=== PATIENT | female | born 2000 | race Caucasian/White ===

== ENCOUNTER 2020-11-28 05:53 | Observation (INO) | payer OTHER ==
[2020-11-28 06:58] VITALS: O2SAT 98
[2020-11-28 07:34] LABS: Amphetamine,Urine NEGATIVE (NEGATIVE); Barbiturate,Urine NEGATIVE (NEGATIVE); Benzodiazepine,Urine NEGATIVE (NEGATIVE); Cocaine,Urine NEGATIVE (NEGATIVE); Methadone,Urine NEGATIVE (NEGATIVE); Opiate,Urine NEGATIVE (NEGATIVE); THC,Urine POSITIVE (NEGATIVE)
[2020-11-28 07:37] LABS: PCP,Urine NEGATIVE (NEGATIVE)
[2020-11-28 10:32] VITALS: BP 111/67; PULSE 73
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
== END 2020-11-28 11:00 | disposition home or self-care (01) ==
LOC: OB 05:53
PROVIDERS: ADMIT Family Medicine; ATTEND Family Medicine
DX: Z34.03 Encounter for supervision of normal first pregnancy, third trimester (principal); Z3A.36 36 weeks gestation of pregnancy; Z04.1 Encounter for examination and observation following transport accident
CPT/HCPCS: 76816; 80307; G0378

== ENCOUNTER 2020-12-14 04:29 | Observation (INO) | payer OTHER ==
[2020-12-14] MEDS ORDERED: BRETHINE 1 MG/ML SQ PRN (18:00)
[2020-12-14] MEDS ORDERED: Lactated Ringers 1,000 ML IV SCH (19:00)
[2020-12-14] MEDS ORDERED: Zofran 4 MG/2 ML VIAL IV PRN (19:00)
[2020-12-14] MEDS ORDERED: OMNIPEN 2 GM*** 2 G in Sodium Chloride 100ML MINI-BAG PLUS 100 ML IV ONE (19:00)
[2020-12-14] MEDS ORDERED: TYLENOL EXTRA STRENGTH 500 MG PO PRN (19:00)
[2020-12-14 19:05] LABS: Absolute Neutrophil Ct (ANC) 9.97 (1.4-6.9); BASOPHIL % 0.1 % (0.0-0.4); Basophil (Absolute #) 0.01 (0-0.4); Eosinophil % 0.3 % (0.00-5.0); Eosinophil (Absolute #) 0.04 (0-0.5); Hematocrit 38.9 % (35-47); Hemoglobin 12.7 gm/dl (12.0-16.0); Lymphocyte (Absolute #) 1.73 (1.0-4.6); Lymphocytes % 13.8 % (24.0-44.0); Mean Cell Volume 86.8 fl (78-100); Mean Corpuscular Hemoglobin 28.3 pg (26-32); Mean Corpuscular Hgb Concent. 32.6 g/dl (32-36); Monocyte (Absolute #) 0.83 (0.0-1.3); Monocytes % 6.6 % (0.0-12.0); Neutrophil % 79.2 % (36.0-66.0); Platelet Count 194 K/mm3 (150-450); Red Blood Count 4.48 M/mm3 (4.1-5.4); Red Cell Distribution Width 17.8 % (11.5-14.0); White Blood Count 12.6 K/mm3 (4.0-10.5)
[2020-12-14 19:19] LABS: Amphetamine,Urine NEGATIVE (NEGATIVE); Barbiturate,Urine NEGATIVE (NEGATIVE); Benzodiazepine,Urine NEGATIVE (NEGATIVE); Cocaine,Urine NEGATIVE (NEGATIVE); Methadone,Urine NEGATIVE (NEGATIVE); Opiate,Urine NEGATIVE (NEGATIVE); PCP,Urine NEGATIVE (NEGATIVE); THC,Urine POSITIVE (NEGATIVE)
[2020-12-14] MEDS: CYTOTEC PO SCH ×2 (20:08→22:16)
[2020-12-14] MEDS ORDERED: OMNIPEN 1 GM*** 1 GM in Sodium Chloride 100ML MINI-BAG PLUS 100 ML IV SCH (23:00)
[2020-12-15] MEDS ORDERED: OMNIPEN 2 GM*** 2 G in Sodium Chloride 100ML MINI-BAG PLUS 100 ML IV ONE ×2
[2020-12-15] MEDS: CYTOTEC PO SCH ×4 (00:25→06:49)
[2020-12-15] MEDS: OMNIPEN 1 GM*** 1 GM in Sodium Chloride 100ML MINI-BAG PLUS 100 ML IV SCH ×2 (04:18→07:58)
[2020-12-15] MEDS ORDERED: XYLOCAINE 1% HCL 20 ML MDV IJ PRN (08:00)
[2020-12-15] MEDS ORDERED: PITOCIN 30 UNITS/ LR 500 ML 30 UNITS/500 ML IV.SOLN. IV SCH ×2 (08:00)
[2020-12-15 08:52] VITALS: O2SAT 98
[2020-12-15 11:40] VITALS: BP 128/59
[2020-12-15 13:26] VITALS: PULSE 75
== END 2020-12-15 13:00 | disposition home or self-care (01) ==
LOC: OB 18:09
PROVIDERS: ADMIT Family Medicine; ATTEND Family Medicine
DX: O98.813 Other maternal infectious and parasitic diseases complicating pregnancy, third trimester (principal); B95.1 Streptococcus, group B, as the cause of diseases classified elsewhere; Z3A.39 39 weeks gestation of pregnancy
CPT/HCPCS: 36415; 80307; 85025; G0378; J0290; J2590

== ENCOUNTER 2020-12-18 18:15 | Inpatient (IN) | payer OTHER ==
[~2020-12-18 18:15] MED LIST: NON-FORMULARY ITEM (Pnv No.103/Folic/Om3s/Fish Oil [Prenatal Gummies] 1 TAB) PO SCH
[2020-12-18] MEDS ORDERED: Zofran 4 MG/2 ML VIAL IV PRN (19:00)
[2020-12-18] MEDS ORDERED: BRETHINE 1 MG/ML SQ PRN (19:00)
[2020-12-18] MEDS ORDERED: TYLENOL EXTRA STRENGTH 500 MG PO PRN (19:00)
[2020-12-18] MEDS: CYTOTEC PO SCH ×3 (19:38→23:46)
[2020-12-18 20:25] LABS: Amphetamine,Urine NEGATIVE (NEGATIVE); Barbiturate,Urine NEGATIVE (NEGATIVE); Benzodiazepine,Urine NEGATIVE (NEGATIVE); Cocaine,Urine NEGATIVE (NEGATIVE); Methadone,Urine NEGATIVE (NEGATIVE); Opiate,Urine NEGATIVE (NEGATIVE); PCP,Urine NEGATIVE (NEGATIVE); THC,Urine POSITIVE (NEGATIVE)
[2020-12-18 20:26] LABS: Absolute Neutrophil Ct (ANC) 9.43 (1.4-6.9); BASOPHIL % 0.2 % (0.0-0.4); Basophil (Absolute #) 0.02 (0-0.4); Eosinophil % 0.3 % (0.00-5.0); Eosinophil (Absolute #) 0.04 (0-0.5); Hematocrit 39.4 % (35-47); Hemoglobin 12.8 gm/dl (12.0-16.0); Lymphocyte (Absolute #) 1.72 (1.0-4.6); Lymphocytes % 14.4 % (24.0-44.0); Mean Cell Volume 86.8 fl (78-100); Mean Corpuscular Hemoglobin 28.2 pg (26-32); Mean Corpuscular Hgb Concent. 32.5 g/dl (32-36); Mean Platelet Volume 11.5 fl (7.5-11.0); Monocyte (Absolute #) 0.71 (0.0-1.3); Neutrophil % 79.1 % (36.0-66.0); Platelet Count 174 K/mm3 (150-450); Red Blood Count 4.54 M/mm3 (4.1-5.4); Red Cell Distribution Width 17.5 % (11.5-14.0); White Blood Count 11.9 K/mm3 (4.0-10.5)
[2020-12-18] MEDS: FEOSOL 325 MG PO SCH (21:43)
[2020-12-18] MEDS: Lactated Ringers 1,000 ML IV SCH (23:47)
[2020-12-19] MEDS ORDERED: OMNIPEN 2 GM*** 2 G in Sodium Chloride 100ML MINI-BAG PLUS 100 ML IV ONE ×2
[2020-12-19] MEDS: CYTOTEC PO SCH ×5 (01:43→08:20)
[2020-12-19] MEDS: OMNIPEN 1 GM*** 1 GM in Sodium Chloride 100ML MINI-BAG PLUS 100 ML IV SCH ×3 (03:45→12:10)
[2020-12-19] MEDS: Lactated Ringers 1,000 ML IV SCH ×3 (04:37→22:07)
[2020-12-19] MEDS ORDERED: PITOCIN 30 UNITS/ LR 500 ML 30 UNITS/500 ML IV.SOLN. IV SCH ×2 (08:00)
[2020-12-19] MEDS ORDERED: XYLOCAINE 1% HCL 20 ML MDV IJ PRN (08:00)
[2020-12-19] MEDS: THERAGRAN MULTIVITAMIN PO SCH (10:00)
[2020-12-19] MEDS ORDERED: Lactated Ringers 1,000 ML IV ONE (11:31)
[2020-12-19] MEDS ORDERED: Ephedrine Sulfate 50 MG/ML IV PRN (11:31)
[2020-12-19] MEDS ORDERED: OB EPIDURAL NAROPIN/SUFENTANIL IN NACL EPIDURAL PRN (11:31)
[2020-12-19] MEDS ORDERED: Dermoplast Spray TP PRN (14:31)
[2020-12-19] MEDS ORDERED: Erythromycin 1 GM OP ONE (14:45)
[2020-12-19] MEDS ORDERED: Vitamin K 1 MG IM ONE (14:45)
[2020-12-19] MEDS ORDERED: Mylicon 80MG PO PRN (14:53)
[2020-12-19] MEDS ORDERED: NORCO 5/325 MG PO PRN (14:53)
[2020-12-19] MEDS ORDERED: LANSINOH 40 GM TOP PRN (14:53)
[2020-12-19] MEDS ORDERED: CORTISONE 1% CREAM TP PRN (14:53)
[2020-12-19] MEDS ORDERED: M-M-R II Vaccine With Diluent SQ ONE (18:00)
[2020-12-19] MEDS ORDERED: TUCKS TP PRN (19:35)
[2020-12-19] MEDS: MOTRIN 400 MG PO PRN (19:43)
[2020-12-19] MEDS: FEOSOL 325 MG PO SCH (21:41)
[2020-12-19] MEDS: Colace 100 MG PO SCH (21:41)
[2020-12-20] MEDS: Lactated Ringers 1,000 ML IV SCH (04:00)
[2020-12-20 06:35] LABS: Absolute Neutrophil Ct (ANC) 8.07 (1.4-6.9); BASOPHIL % 0.2 % (0.0-0.4); Basophil (Absolute #) 0.02 (0-0.4); Eosinophil % 0.9 % (0.00-5.0); Hematocrit 34.6 % (35-47); Lymphocyte (Absolute #) 2.64 (1.0-4.6); Lymphocytes % 22.5 % (24.0-44.0); Mean Corpuscular Hgb Concent. 31.8 g/dl (32-36); Mean Platelet Volume 11.3 fl (7.5-11.0); Monocytes % 7.7 % (0.0-12.0); Neutrophil % 68.7 % (36.0-66.0); Platelet Count 138 K/mm3 (150-450); Red Blood Count 3.93 M/mm3 (4.1-5.4); Red Cell Distribution Width 17.4 % (11.5-14.0); White Blood Count 11.7 K/mm3 (4.0-10.5)
[2020-12-20] MEDS: Colace 100 MG PO SCH ×2 (11:24→21:47)
[2020-12-20] MEDS: THERAGRAN MULTIVITAMIN PO SCH (11:24)
[2020-12-20] MEDS: MOTRIN 400 MG PO PRN ×2 (11:24→21:46)
[2020-12-20] MEDS: OMNIPEN 1 GM*** 1 GM in Sodium Chloride 100ML MINI-BAG PLUS 100 ML IV SCH (21:29)
[2020-12-20] MEDS: FEOSOL 325 MG PO SCH (21:47)
[2020-12-21 01:26] VITALS: O2SAT 98
[2020-12-21 09:27] VITALS: BP 115/67; PULSE 70
== END 2020-12-21 14:00 | disposition home or self-care (01) | DRG 807 ==
LOC: UNDOADMOB 18:15 → OB 18:15 → OBSVTOIN 12-19 12:42 → INTOOBSV 12-19 12:42 → OB 12-19 12:42
PROVIDERS: ADMIT Family Medicine; ATTEND Family Medicine
PROC: 10E0XZZ Delivery of Products of Conception, External Approach (ICD-10-PCS; principal; 2020-12-19)
DX: O69.0XX0 Labor and delivery complicated by prolapse of cord, not applicable or unspecified (principal); Z37.0 Single live birth; Z3A.39 39 weeks gestation of pregnancy
CPT/HCPCS: 36415; 80307; 84112; 85025; 90471; 90707; G0378; J0290; J2590; J2795; A9270-GY

== ENCOUNTER 2024-01-30 20:02 | Inpatient (IN) | payer OTHER ==
[2024-01-30 21:23] LABS: AMNISURE TEST RESULTS POSITIVE (NEGATIVE)
[2024-01-30 21:48] LABS: Amphetamine,Urine NEGATIVE (NEGATIVE); Barbiturate,Urine NEGATIVE (NEGATIVE); Benzodiazepine,Urine NEGATIVE (NEGATIVE); Cocaine,Urine NEGATIVE (NEGATIVE); Methadone,Urine NEGATIVE (NEGATIVE); Opiate,Urine NEGATIVE (NEGATIVE); PCP,Urine NEGATIVE (NEGATIVE); THC,Urine POSITIVE (NEGATIVE)
[2024-01-30 22:30] LABS: Appearance Turbid (Clear); Bacteria None Seen /HPF (None Seen); Bilirubin Negative (Negative); Blood Negative (Negative); Epithelial Cells Rare /HPF (None Seen); Glucose, Urine Negative (Negative); Hyaline Casts NONE SEEN /LPF (0-2); Ketones Negative (Negative); Leukocyte Esterase Moderate (Negative); Nitrite Negative (Negative); Protein,Urine Dip 30 (Negative); RBC >100 /HPF (0-5); Urobilinogen 0.2 mg/dL (0.2); WBC 21-50 /HPF (0-5)
[2024-01-30] MEDS ORDERED: XYLOCAINE 1% HCL 20 ML MDV IJ PRN (22:38)
[2024-01-30] MEDS ORDERED: TYLENOL EXTRA STRENGTH 500 MG PO PRN (22:38)
[2024-01-30 22:42] LABS: ADD URINE CULTURE? YES (NO)
[2024-01-30 23:03] LABS: Absolute Neutrophil Ct (ANC) 10.28 x10^3/uL (1.56-6.13); BASOPHIL % 0.2 % (0.1-1.2); Basophil (Absolute #) 0.03 x10^3/uL (0.01-0.08); Eosinophil % 1.2 % (0.7-5.8); Eosinophil (Absolute #) 0.16 x10^3/uL (0.04-0.36); Hematocrit 33.7 % (34.1-44.9); Hemoglobin 10.9 g/dL (11.2-15.7); IMMATURE GRAN % 0.7 % (0.001-0.429); Lymphocyte (Absolute #) 2.54 x10^3/uL (1.18-3.74); Lymphocytes % 18.5 % (19.3-51.7); Mean Cell Volume 85.8 fL (79.4-94.8); Mean Corpuscular Hemoglobin 27.7 pg (25.6-32.2); Mean Corpuscular Hgb Concent. 32.3 g/dL (32.2-35.5); Mean Platelet Volume 10.8 fL (9.4-12.3); Monocyte (Absolute #) 0.61 x10^3/uL (0.24-0.86); Monocytes % 4.4 % (4.7-12.5); Platelet Count 165 x10^3/uL (182-369); Red Blood Count 3.93 x10^6/uL (3.93-5.22); Red Cell Distribution Width 13.7 % (11.7-14.4); White Blood Count 13.7 x10^3/uL (3.98-10.04)
[2024-01-31] MEDS ORDERED: BRETHINE 1 MG/ML SQ PRN (01:13)
[2024-01-31] MEDS: Lactated Ringers 1,000 ML IV SCH (01:30)
[2024-01-31] MEDS: PITOCIN 30 UNITS/ LR 500 ML 30 UNITS/500 ML PLAST..BAG IV SCH (01:30)
[2024-01-31] MEDS ORDERED: OMNIPEN 2 GM ONE (06:26)
[2024-01-31] MEDS ORDERED: Sodium Chloride 0.9% 100 ML ONE (06:31)
[2024-01-31] MEDS: STADOL 2 MG IV ONE (06:37)
[2024-01-31] MEDS: OMNIPEN 2 GM*** 2 G in Sodium Chloride 100ML MINI-BAG PLUS 100 ML IV ONE (07:00)
[2024-01-31] MEDS ORDERED: Sensorcaine 0.25% 10 ML ONE (07:02)
[2024-01-31] MEDS ORDERED: FENTANYL 2 MCG-BUPIV 0.125%-NS 250 ML Epidur 250 ML EPIDURAL ONE (07:28)
[2024-01-31] MEDS ORDERED: Ephedrine Sulfate 50 MG/ML IV PRN (07:30)
[2024-01-31] MEDS: FENTANYL 2 MCG-BUPIV 0.125%-NS 250 ML Epidur 250 ML EPIDURAL SCH (07:31)
[2024-01-31] MEDS: Zofran 4 MG/2 ML VIAL IV PRN (10:40)
[2024-01-31] MEDS ORDERED: Dulcolax 10 MG SUPP PR PRN (10:51)
[2024-01-31] MEDS ORDERED: Mylicon 80MG PO PRN (10:51)
[2024-01-31] MEDS ORDERED: Anucort-HC SUPPOSITORY PR PRN (10:51)
[2024-01-31] MEDS ORDERED: TYLENOL EXTRA STRENGTH 500 MG PO PRN (10:51)
[2024-01-31] MEDS ORDERED: NORCO 5/325 MG PO PRN (10:51)
[2024-01-31] MEDS ORDERED: Ambien 10 MG PO PRN (10:51)
[2024-01-31] MEDS ORDERED: CORTISONE 1% CREAM TP PRN (10:51)
[2024-01-31] MEDS: MOTRIN 400 MG PO PRN (11:56)
[2024-01-31] MEDS: LANSINOH 40 GM TOP PRN (11:57)
[2024-01-31] MEDS: Dermoplast Spray TP PRN (11:57)
[2024-01-31] MEDS: TUCKS TP PRN (17:28)
[2024-02-01] MEDS: Docusate Sodium 100 MG PO SCH (05:11)
[2024-02-01 06:13] LABS: Absolute Neutrophil Ct (ANC) 8.79 x10^3/uL (1.56-6.13); BASOPHIL % 0.3 % (0.1-1.2); Basophil (Absolute #) 0.04 x10^3/uL (0.01-0.08); Eosinophil % 1.2 % (0.7-5.8); Eosinophil (Absolute #) 0.15 x10^3/uL (0.04-0.36); Hemoglobin 9.9 g/dL (11.2-15.7); IMMATURE GRAN # 0.05 x10^3u/L (0.001-0.031); IMMATURE GRAN % 0.4 % (0.001-0.429); Lymphocyte (Absolute #) 2.54 x10^3/uL (1.18-3.74); Lymphocytes % 20.6 % (19.3-51.7); Mean Cell Volume 85.4 fL (79.4-94.8); Mean Corpuscular Hemoglobin 27.3 pg (25.6-32.2); Mean Corpuscular Hgb Concent. 31.9 g/dL (32.2-35.5); Mean Platelet Volume 10.9 fL (9.4-12.3); Monocyte (Absolute #) 0.75 x10^3/uL (0.24-0.86); Monocytes % 6.1 % (4.7-12.5); Neutrophil % 71.4 % (34.0-71.1); Platelet Count 143 x10^3/uL (182-369); Red Blood Count 3.63 x10^6/uL (3.93-5.22); Red Cell Distribution Width 14.3 % (11.7-14.4); White Blood Count 12.3 x10^3/uL (3.98-10.04)
[2024-02-01 10:19] LABS: RPR Non Reactive (Non Reactive)
[2024-02-01] MEDS: FERREX 150 PO SCH (11:02)
[2024-02-01] MEDS: Adacel Vial IM ONE (15:21)
[2024-02-01] MEDS: PITOCIN 30 UNITS/ LR 500 ML 30 UNITS/500 ML PLAST..BAG IV SCH (19:23)
[2024-02-01] MEDS: OMNIPEN 1 GM*** 1 GM in Sodium Chloride 100ML MINI-BAG PLUS 100 ML IV SCH (19:23)
[2024-02-02 05:14] VITALS: PULSE 54
--- NOTE | 2024-02-02 08:58 | PCM.DS ---
Discharge Summary Date of Admission: 01/30/24 20:02 Admitting Physician: SERGIO CANTRELL DO Consults: Consults on Case 01/31/24 13:02 Navigation ONCE Primary Care Provider: ALAN DOWNEY Allergies Allergies No Known Drug Allergies Allergy (Verified 01/30/24 20:51) Hospital Summary - Hospital Course Hospital Course: arrived in spont labor, uncomplicated . mild lochia, no pain. doing great - Vitals & Intake/Output Vital Signs: Vital Signs Temperature 98.7 F 02/02/24 05:00 Pulse Rate 54 L 02/02/24 05:00 Respiratory Rate 16 02/02/24 05:00 Blood Pressure 122/72 02/02/24 05:00 O2 Sat by Pulse Oximetry 97 02/02/24 05:00 Intake & Output: Intake & Output 01/30/24 01/31/24 02/01/24 02/02/24 11:59 11:59 11:59 11:59 Intake Total 6652 1200 Balance 6652 1200 Weight 70.307 kg - Lab Result Diagrams: 02/01/24 06:00 Lab Results-Last 24 Hrs: Lab Results-Last 24 Hours 01/30/24 Range/Units 22:47 RPR Non Reactive (Non Reactive) Micro Results-Entire Visit: Microbiology 01/30/24 21:10 Urine Culture - Final Clean Catch Midstream <10K NORMAL SKIN PAWAN PROBABLE SKIN CONTAMINANT - Procedures and Test Procedures and Tests throughout Hospitalization: Therapy Orders & Screens 01/31/24 09:01 Standby ROUTINE Comment: Diagnosis: Labor Discharge Exam General Appearance: no apparent distress Respiratory Exam: normal breath sounds, lungs clear, No respiratory distress Cardiovascular Exam: regular rate/rhythm, normal heart sounds Gastrointestinal/Abdomen Exam: soft, No tenderness, No mass Extremity Exam: normal inspection, normal range of motion Skin Exam: normal color, warm, dry Final Diagnosis/Problem List - Final Discharge Diagnosis/Problem (1) Vaginal delivery Current Visit: Yes Status: Acute Code(s): O80 - ENCOUNTER FOR FULL-TERM UNCOMPLICATED DELIVERY - Discharge Disposition: Home, Self-Care Condition: Stable Prescriptions: Continue Pnv No.103/Folic/Om3s/Fish Oil [ Gummies] 1 tab PO DAILY Follow up with: ALAN DOWNEY MD [Primary Care Provider] - 6 weeks
[2024-02-02 10:46] VITALS: BP 113/75; RESP 20; TEMP 98.6; O2SAT 99
== END 2024-02-02 12:55 | disposition home or self-care (01) | DRG 807 ==
LOC: OBSVTOIN 20:02 → UNDOADMOB 20:02 → OB 20:02
PROVIDERS: ADMIT Obstetrics & Gynecology; ATTEND Obstetrics & Gynecology
PROC: 10E0XZZ Delivery of Products of Conception, External Approach (ICD-10-PCS; principal; 2024-01-31)
DX: O80 Encounter for full-term uncomplicated delivery (principal); Z37.0 Single live birth; Z3A.39 39 weeks gestation of pregnancy
CPT/HCPCS: 36415; 80307; 81001; 84112; 85025; 86592; 87086; 90715; 94799; J0290; J0595; J2405; J2590; A9270-GY

== ENCOUNTER 2024-06-14 23:25 | Emergency (ER) | payer OTHER ==
[2024-06-14 23:49] VITALS: RESP 22; TEMP 97.9
--- NOTE | 2024-06-14 23:58 | ERPHSYRPT ---
- History of Present Illness Time Seen by Provider: 06/14/24 23:58 Historian: patient Exam Limitations: no limitations Patient Subjective Stated Complaint: pt states that she is thinks her gallbladder is bad Triage Nursing Assessment: pt ambulated into the er; pt is axo x4; pt is anxious and tearful; c/o RUQ pain; pt denies N/V/D; abd flat, soft, tender; active bowel sounds in all quads; skin PDW; no respiratory distress; hypertensive; tachycar dic Physician History: The patient presents with abdominal pain. Abdominal pain is located in the middle of the abdomen and radiates to the back. It occurs intermittently and is usually managed with Tums, although this time it has not been effective. They have tried Gas-X and massaging the area without relief. The pain is described as mild and located under the ribs. No nausea, vomiting, or fever. They experience intermittent diarrhea, which they associate with low blood pressure. They are experiencing anxiety and a panic attack. They have not taken any medication for anxiety but have used marijuana and vaping in the past, which they have now stopped due to the current situation. They have a [id number] child, which may contribute to their current stress levels. Timing/Duration: today Activities at Onset: rest Quality: sharpness, stabbing Abdominal Pain Onset Location: epigastric Pain Radiation: back Severity of Pain-Max: severe Severity of Pain-Current: moderate Modifying Factors: Improves With: nothing. Worsens With: eating, palpation Associated Symptoms: back, heartburn, loss of appetite, No fever/chills, No nausea, No vomiting Previous symptoms: same symptoms as today Allergies/Adverse Reactions: No Known Drug Allergies Allergy (Verified 06/14/24 23:34) Hx Tetanus, Diphtheria Vaccination/Date Given: Yes Hx Influenza Vaccination/Date Given: No Hx Pneumococcal Vaccination/Date Given: No Travel Risk - International Travel Have you traveled outside of the country in past 3 weeks: No - Emerging Infectious Disease Are you exhibiting symptoms associated with any current EIDs: Yes Symptoms: Abdominal Pain - Review of Systems All Other Systems: Reviewed and Negative - Past Medical History Pertinent Past Medical History: No Neurological History: No Pertinent History ENT History: No Pertinent History Cardiac History: No Pertinent History Respiratory History: No Pertinent History Endocrine Medical History: No Pertinent History Musculoskeletal History: No Pertinent History GI Medical History: No Pertinent History History: No Pertinent History Psycho-Social History: No Pertinent History Female Reproductive Disorders: No Pertinent History Other Medical History: pt denies any PMH - Past Surgical History Past Surgical History: No Neuro Surgical History: No Pertinent History Cardiac: No Pertinent History Respiratory: No Pertinent History Gastrointestinal: No Pertinent History Genitourinary: No Pertinent History Musculoskeletal: No Pertinent History Female Surgical History: No Pertinent History Other Surgical History: pt denies any PMH - Female History Hx Last Menstrual Period: iud Hx Now: No - Social History Smoking Status: Light tobacco smoker How long have you smoked: 3 Exposure to second hand smoke: No Drug Use: marijuana - Social Determinants of Health Will the patient participate in the screening: Yes Do you worry about a steady place to live?: No Do you have any problems with any of the following?: No known problems In the past 12 months,have you had to go without utilities?: No Transportation Issues: No Has anyone in your support network made you feel unsafe?: No Have you or anyone in your house had to go without enough: No - Nursing Vital Signs Nursing Vital Signs: Initial Vital Signs Temperature 97.9 F 06/14/24 23:36 Pulse Rate 129 H 06/14/24 23:36 Respiratory Rate 22 06/14/24 23:36 Blood Pressure 149/96 06/14/24 23:36 O2 Sat by Pulse Oximetry 99 06/14/24 23:36 Pain Scale Pain Intensity 0 - Physical Exam General Appearance: no apparent distress, anxiety Eye Exam: eyes nml inspection Ears, Nose, Throat Exam: normal ENT inspection Neck Exam: normal inspection, supple, full range of motion Respiratory Exam: airway intact, No respiratory distress Cardiovascular Exam: tachycardia, capillary refill <2 sec Gastrointestinal/Abdomen Exam: soft, normal bowel sounds, No tenderness, No distention, No mass, No guarding, No rebound Neurologic Exam: alert, oriented x 3, cooperative, other (anxious) Skin Exam: normal color, warm, dry, No rash SpO2 Interpretation: normal SpO2: 99 O2 Delivery: Room Air - Course Nursing assessment & vital signs reviewed: Yes Ordered Tests: Active Orders 24 hr Category Date Time Status ABDOMEN AND PELVIS W/0 CONTRAS [CT] Stat Exams 06/15/24 00:04 Completed CBC W DIFF Stat Lab 06/14/24 23:59 Completed CMP Stat Lab 06/14/24 23:59 Completed HCG, Quantitative (Inhouse) Stat Lab 06/15/24 00:00 Completed LIPASE Stat Lab 06/14/24 23:59 Completed TSH [TSH, 3RD Generation] Stat Lab 06/15/24 00:00 Completed UA W/RFX UR CULTURE Stat Lab 06/15/24 00:11 Completed Urine Triage Profile Stat Lab 06/15/24 00:11 Completed Medication Summary Discontinued Medications Generic Name Dose Route Start Last Admin Trade Name Beck PRN Reason Stop Dose Admin Al Hydrox/Mg Hydrox/Simethicone Confirm 06/15/24 00:12 Mag Hydrox/Al Hydrox/Simeth 30 Ml Udcup Administered 06/15/24 00:13 Dose 30 ml .ROUTE .STK-MED ONE Hydroxyzine HCl 25 mg 06/15/24 00:05 06/15/24 00:13 Hydroxyzine Hcl 25 Mg Tablet PO 06/15/24 00:06 25 mg STAT ONE Administration Hydroxyzine HCl Confirm 06/15/24 00:12 Hydroxyzine Hcl 25 Mg Tablet Administered 06/15/24 00:13 Dose 25 mg .ROUTE .STK-MED ONE Lidocaine HCl Confirm 06/15/24 00:12 Lidocaine Hcl 2% Viscous 15 Ml Udcup Administered 06/15/24 00:13 Dose 15 ml .ROUTE .STK-MED ONE Magnesium Hydroxide 45 ml 06/14/24 23:58 06/15/24 00:13 Mag Hydrx/Alum Hyd/Simeth/Lido 45 Ml Bottle PO 06/14/24 23:59 45 ml STAT ONE Administration Pantoprazole Sodium 40 mg 06/14/24 23:58 06/15/24 00:13 Protonix (Pantoprazole) 40 Mg Tablet PO 06/14/24 23:59 40 mg STAT ONE Administration Pantoprazole Sodium Confirm 06/15/24 00:12 Protonix (Pantoprazole) 40 Mg Tablet Administered 06/15/24 00:13 Dose 40 mg .ROUTE .STK-MED ONE Lab/Rad Data: Laboratory Result Diagrams 06/14/24 23:59 06/14/24 23:59 Laboratory Results 06/15/24 06/15/24 06/15/24 Range/Units 00:11 00:11 00:00 WBC (3.98-10.04) x10^3/uL RBC (3.93-5.22) x10^6/uL Hgb (11.2-15.7) g/dL Hct (34.1-44.9) % MCV (79.4-94.8) fL MCH (25.6-32.2) pg MCHC (32.2-35.5) g/dL RDW (11.7-14.4) % Plt Count (182-369) x10^3/uL MPV (9.4-12.3) fL Gran % (34.0-71.1) % Immature Gran % (Auto) (0.001-0.429) % Nucleat RBC Rel Count (0.00-0.2) % Eos # (Auto) (0.04-0.36) x10^3/uL Immature Gran # (Auto) (0.001-0.031) x10^3u/L Absolute Lymphs (auto) (1.18-3.74) x10^3/uL Absolute Monos (auto) (0.24-0.86) x10^3/uL Absolute Nucleated RBC (0.00-0.012) x10^3u/L Lymphocytes % (19.3-51.7) % Monocytes % (4.7-12.5) % Eosinophils % (0.7-5.8) % Basophils % (0.1-1.2) % Absolute Granulocytes (1.56-6.13) x10^3/uL Basophils # (0.01-0.08) x10^3/uL Sodium (135-145) mmol/L Potassium (3.5-5.1) mmol/L Chloride (98-107) mmol/L Carbon Dioxide (22-30) mmol/L Anion Gap (5-15) MEQ/L BUN (7-17) mg/dL Creatinine (0.52-1.04) mg/dL Estimated GFR ML/MIN Glucose (74-106) mg/dL Calcium (8.4-10.2) mg/dL Total Bilirubin (0.2-1.3) mg/dL AST (14-36) U/L ALT (0-35) U/L Alkaline Phosphatase (38-126) U/L Serum Total Protein (6.3-8.2) g/dL Albumin (3.5-5.0) g/dL Lipase (23-300) U/L TSH 3rd Generation 1.581 (0.470-4.680) mIU/L Beta HCG, Quant mIU/ml Urine Color Yellow (Yellow) Urine Appearance Clear (Clear) Urine pH 6.5 (4.6-8.0) Ur Specific Newton <=1.005 (1.005-1.030) Urine Protein Negative (Negative) Urine Glucose (UA) Negative (Negative) mg/dL Urine Ketones Negative (Negative) Urine Blood Negative (Negative) Urine Nitrite Negative (Negative) Urine Bilirubin Negative (Negative) Urine Urobilinogen 0.2 (0.2) mg/dL Ur Leukocyte Esterase Negative (Negative) U Hyaline Cast (Auto) NONE SEEN (0-2) /LPF Urine Microscopic RBC 0-2 (0-5) /HPF Urine Microscopic WBC 0-2 (0-5) /HPF Ur Epithelial Cells None Seen (None Seen) /HPF Urine Bacteria None Seen (None Seen) /HPF Urine Culture Reflexed NO (NO) Urine Opiates Level NEGATIVE (NEGATIVE) Ur Methadone NEGATIVE (NEGATIVE) Urine Barbiturates NEGATIVE (NEGATIVE) Ur Phencyclidine (PCP) NEGATIVE (NEGATIVE) Urine Amphetamine NEGATIVE (NEGATIVE) U Benzodiazepine Level NEGATIVE (NEGATIVE) Urine Cocaine NEGATIVE (NEGATIVE) Urine Marijuana (THC) POSITIVE A (NEGATIVE) 06/15/24 06/14/24 06/14/24 Range/Units 00:00 23:59 23:59 WBC 8.2 (3.98-10.04) x10^3/uL RBC 4.60 (3.93-5.22) x10^6/uL Hgb 13.3 (11.2-15.7) g/dL Hct 38.5 (34.1-44.9) % MCV 83.7 (79.4-94.8) fL MCH 28.9 (25.6-32.2) pg MCHC 34.5 (32.2-35.5) g/dL RDW 13.3 (11.7-14.4) % Plt Count 217 (182-369) x10^3/uL MPV 9.6 (9.4-12.3) fL Gran % 58.5 (34.0-71.1) % Immature Gran % (Auto) 0.2 (0.001-0.429) % Nucleat RBC Rel Count 0.0 (0.00-0.2) % Eos # (Auto) 0.18 (0.04-0.36) x10^3/uL Immature Gran # (Auto) 0.02 (0.001-0.031) x10^3u/L Absolute Lymphs (auto) 2.69 (1.18-3.74) x10^3/uL Absolute Monos (auto) 0.49 (0.24-0.86) x10^3/uL Absolute Nucleated RBC 0.00 (0.00-0.012) x10^3u/L Lymphocytes % 32.7 (19.3-51.7) % Monocytes % 6.0 (4.7-12.5) % Eosinophils % 2.2 (0.7-5.8) % Basophils % 0.4 (0.1-1.2) % Absolute Granulocytes 4.81 (1.56-6.13) x10^3/uL Basophils # 0.03 (0.01-0.08) x10^3/uL Sodium 140 (135-145) mmol/L Potassium 3.6 (3.5-5.1) mmol/L Chloride 108 H (98-107) mmol/L Carbon Dioxide 21 L (22-30) mmol/L Anion Gap 15.2 H (5-15) MEQ/L BUN 16 (7-17) mg/dL Creatinine 0.80 (0.52-1.04) mg/dL Estimated GFR 104.8 ML/MIN Glucose 106 (74-106) mg/dL Calcium 10.2 (8.4-10.2) mg/dL Total Bilirubin 0.40 (0.2-1.3) mg/dL AST 24 (14-36) U/L ALT 18 (0-35) U/L Alkaline Phosphatase 49 (38-126) U/L Serum Total Protein 8.1 (6.3-8.2) g/dL Albumin 4.7 (3.5-5.0) g/dL Lipase 364 H (23-300) U/L TSH 3rd Generation (0.470-4.680) mIU/L Beta HCG, Quant < 2.39 mIU/ml Urine Color (Yellow) Urine Appearance (Clear) Urine pH (4.6-8.0) Ur Specific Newton (1.005-1.030) Urine Protein (Negative) Urine Glucose (UA) (Negative) mg/dL Urine Ketones (Negative) Urine Blood (Negative) Urine Nitrite (Negative) Urine Bilirubin (Negative) Urine Urobilinogen (0.2) mg/dL Ur Leukocyte Esterase (Negative) U Hyaline Cast (Auto) (0-2) /LPF Urine Microscopic RBC (0-5) /HPF Urine Microscopic WBC (0-5) /HPF Ur Epithelial Cells (None Seen) /HPF Urine Bacteria (None Seen) /HPF Urine Culture Reflexed (NO) Urine Opiates Level (NEGATIVE) Ur Methadone (NEGATIVE) Urine Barbiturates (NEGATIVE) Ur Phencyclidine (PCP) (NEGATIVE) Urine Amphetamine (NEGATIVE) U Benzodiazepine Level (NEGATIVE) Urine Cocaine (NEGATIVE) Urine Marijuana (THC) (NEGATIVE) - Progress Progress: improved Progress Note: Abdominal Pain Intermittent mid-abdominal pain radiating to the back, managed with Tums. No associated nausea, vomiting, or fever. Differential diagnosis includes gallbladder pathology, gastritis, or peptic ulcer disease. Discussed risks of self-medicating with Tums and Gas-X, including potential masking of serious conditions. - Order abdominal CT - Order CBC, CMP, Lipase, UA, TSH - Given GI cocktail, Protonix and Hydroxyzine 06/15/24 01:36 Labs showed lipase of 350, neg HCG, otherwise unremarkable. Sxs likely secondary to GERD, will send protonix 40mg QD. Patient also suffers from anxiety, recommend close f/u with Dr. Downey. Sent Hydroxyzine 50mg TID prn for anxiety. Counseled pt/family regarding: lab results, diagnosis Medical Desision Making - Diagnostic Testing Diagnostic test were ordered, analyzed, and reviewed by me: Yes Radiological Interpretation: Interpreted by me, Reviewed by me, Teleradiologist Report - Risk of complications The pt has a mod risk of morbidity or mortality based on: Need for prescription drug management - Departure Departure Disposition: Home Clinical Impression: GERD (gastroesophageal reflux disease), Elevated lipase, Anxiety Condition: Good Critical Care Time: No Referrals: ALAN DOWNEY MD [Primary Care Provider] - Follow up/PCP as directed Instructions: Dyspepsia (DC), Abdominal pain Prescriptions: hydrOXYzine pamoate [Hydroxyzine Pamoate] 50 mg PO TID PRN 10 Days #30 cap PRN Reason: Anxiety Pantoprazole Sodium [Protonix] 40 mg PO DAILY 30 Days #30 tablet
[2024-06-15] MEDS ORDERED: Protonix 40MG Tablet ONE (00:12)
[2024-06-15] MEDS ORDERED: XYLOCAINE VISCOUS 2% 15 ML CUP ONE (00:12)
[2024-06-15] MEDS ORDERED: ATARAX 25 MG ONE (00:12)
[2024-06-15] MEDS ORDERED: MAALOX ES 30 ML UNIT DOSE ONE (00:12)
[2024-06-15] MEDS: Protonix 40MG Tablet PO ONE (00:13)
[2024-06-15] MEDS: GI COCKTAIL 45 ML (Maalox/Lidocaine) PO ONE (00:13)
[2024-06-15] MEDS: ATARAX 25 MG PO ONE (00:13)
[2024-06-15 00:31] LABS: Appearance Clear (Clear); Bacteria None Seen /HPF (None Seen); Bilirubin Negative (Negative); Blood Negative (Negative); Epithelial Cells None Seen /HPF (None Seen); Glucose, Urine Negative (Negative); Hyaline Casts NONE SEEN /LPF (0-2); Ketones Negative (Negative); Leukocyte Esterase Negative (Negative); Nitrite Negative (Negative); Ph 6.5 (4.6-8.0); Protein,Urine Dip Negative (Negative); RBC 0-2 /HPF (0-5); Specific Gravity <=1.005 (1.005-1.030); Urobilinogen 0.2 mg/dL (0.2); WBC 0-2 /HPF (0-5)
[2024-06-15 00:33] LABS: Absolute Neutrophil Ct (ANC) 4.81 x10^3/uL (1.56-6.13); BASOPHIL % 0.4 % (0.1-1.2); Basophil (Absolute #) 0.03 x10^3/uL (0.01-0.08); Eosinophil % 2.2 % (0.7-5.8); Eosinophil (Absolute #) 0.18 x10^3/uL (0.04-0.36); Hematocrit 38.5 % (34.1-44.9); Hemoglobin 13.3 g/dL (11.2-15.7); IMMATURE GRAN # 0.02 x10^3u/L (0.001-0.031); IMMATURE GRAN % 0.2 % (0.001-0.429); Lymphocyte (Absolute #) 2.69 x10^3/uL (1.18-3.74); Lymphocytes % 32.7 % (19.3-51.7); Mean Cell Volume 83.7 fL (79.4-94.8); Mean Corpuscular Hemoglobin 28.9 pg (25.6-32.2); Mean Corpuscular Hgb Concent. 34.5 g/dL (32.2-35.5); Mean Platelet Volume 9.6 fL (9.4-12.3); Monocyte (Absolute #) 0.49 x10^3/uL (0.24-0.86); Neutrophil % 58.5 % (34.0-71.1); Platelet Count 217 x10^3/uL (182-369); Red Cell Distribution Width 13.3 % (11.7-14.4); White Blood Count 8.2 x10^3/uL (3.98-10.04)
[2024-06-15 00:42] LABS: ALBUMIN 4.7 g/dL (3.5-5.0); ANION GAP 15.2 MEQ/L (5-15); BILIRUBIN,TOTAL 0.4 mg/dL (0.2-1.3); Calcium 10.2 mg/dL (8.4-10.2); Creatinine 1 0.8 mg/dL (0.52-1.04); EST GLOMERULAR FILTRATION RATE 104.8 ML/MIN; Potassium 3.6 mmol/L (3.5-5.1); Total Protein 8.1 g/dL (6.3-8.2)
[2024-06-15 00:44] LABS: Amphetamine,Urine NEGATIVE (NEGATIVE); Barbiturate,Urine NEGATIVE (NEGATIVE); Benzodiazepine,Urine NEGATIVE (NEGATIVE); Cocaine,Urine NEGATIVE (NEGATIVE); Methadone,Urine NEGATIVE (NEGATIVE); Opiate,Urine NEGATIVE (NEGATIVE); PCP,Urine NEGATIVE (NEGATIVE); THC,Urine POSITIVE (NEGATIVE)
--- NOTE | 2024-06-15 01:32 | XRAY ---
CLINICAL HISTORY: abd pain COMPARISON: None. TECHNIQUE: Contiguous axial images were obtained from the level of the diaphragm to the pubic symphysis without intravenous or oral contrast. Coronal and sagittal reconstructions were likewise performed and indicated to increase the sensitivity for detecting clinically relevant pathology. CT scan was performed according to ALARA (as low as reasonable achievable). FINDINGS: The visualized lung bases are clear. Evaluation of the abdominal and pelvic visceral organs is limited without intravenous contrast. The unenhanced liver, spleen, pancreas, and adrenal glands are grossly unremarkable. The gallbladder is present. The kidneys are normal in size and attenuation without obvious calcification. There is no hydronephrosis or perinephric stranding. The ureters are normal in caliber. No adenopathy or fluid collections are seen. No evidence of focal or diffuse bowel wall thickening or evidence of bowel obstruction is seen. The appendix is visualized in the right lower quadrant and appears within normal limits. The aorta is normal in caliber. The urinary bladder is normal in contour. Pelvic viscera are grossly unremarkable. IUCD seen in situ. No aggressive appearing osseous lesions are identified. IMPRESSION: 1. Unremarkable study. Electronically Signed by: Yuniel Gates MD. (06/15/2024 01:28:15 EST)
[2024-06-15 01:34] VITALS: BP 109/63; PULSE 69
[2024-06-15 01:38] VITALS: O2SAT 99
== END 2024-06-15 01:40 | disposition home or self-care (01) ==
LOC: ED 23:25
DX: K21.9 Gastro-esophageal reflux disease without esophagitis (principal); R10.11 Right upper quadrant pain; R79.89 Other specified abnormal findings of blood chemistry; F41.9 Anxiety disorder, unspecified
CPT/HCPCS: 36415; 74176; 80053; 80307; 81001; 83690; 84443; 84702; 85025; 99283; 99284; A9270-GY